=== PATIENT | female | born 1995 | race Caucasian/White ===

== ENCOUNTER 2025-02-05 13:08 | Outpatient (AMB) | payer BC, SELFPAY ==
--- OUTSIDE RECORDS SUMMARY | 2024-06-05 16:14 | XMS_ITS | Encounter Summary ---
Author Organization [facility] Address [address] [place] [address] [address] [place] [address] Phone Care Team Providers Care Eye Glass Frame Polisher Name Role Phone Liz Fuentes MD Primary Care Provider Unknown, Unknown MD Unavailable Unavailable Encounter Details Date Type Department Care Team (Late st Contact Info) Description 06/05/2024 3:14 PM EST Hospital Encounter [facility] [address] [place] [phone] Laura Barr CNP [address] [place] [phone] [email or web address] Social History Tobacco Use Types Packs/Day Years [...] Description 04/03/2026 3:00 PM EDT Office Visit [facility] [address] [place] [address] Nic Vega MD, MS [address] [place] [address] [email or web address] documented as of this encounter Procedures Procedure [...] clinician's provided indication for this examination in [facility]:Cough; H/o PE r/t OCP's- off eliquis X 1 year- Covid 2.5 weeks ago-restart eliqius X 2 weeks COMPARISON: XR CHEST PORTABLE FINDINGS: Devices/Tubes/Lines: None. Lungs: No focal consolidation or pulmonary edema. Pleura: No pleural effusions or pneumothorax. Heart/Mediastinum: Normal cardiomediastinal silhouette. Bones/Soft Tissues: No significant abnormality. IMPRESSION: No acute abnormality. Laura Barr SPECIAL ASSETS OFFICER IMG XR CHEST Final Resul t documented in this encounter Visit Diagnoses Not on filedocumented in this encounter Care Teams Eye Glass Frame Polisher Relationship Specialty Start Date End Date Liz Fuentes MD [facility] [place] [address] [email or web address] PCP - General 05/07/22 12/17/24 Unknown, Unknown, [facility] [place] [address] 05/07/22 documented as of this encounter Additional Source Comments The information contained in this document represents components of the legal health record. It is not the complete legal health record.[facility]
--- NOTE | 2025-02-05 13:11 | MHC.PC.OV ---
Vital Signs 02/05/25 13:13 Height 5 ft 5.98 in Weight 189 lb 4 oz BMI 30.6 BP 126/74 Blood Pressure Location Lt brachial Position Sitting Respiration 12 Pulse 79 Pulse Source Pulse Oximeter Temp 98.5 F Temp Source Oral Pulse Oximetry (%) 99 Oxygen Delivery Method Room Air Intake Visit Reasons: CONSULTING BUSINESS DEVELOPER-PE Allergies cat dander Allergy (Unknown, Verified 02/05/25 13:07) Unknown horse dander Allergy (Unknown, Verified 02/05/25 13:07) Unknown Sulfa (Sulfonamide Antibiotics) Allergy (Unknown, Verified 02/05/25 13:07) Rash Medication List - Last Reconciled 02/05/25 by Rahel Denny PA-C albuterol sulfate 90 mcg/actuation (Ventolin HFA) 2 puffs inhalation Q6H PRN Tobacco use date assessed: 02/05/25 Dental Screening Dental Screen Date: 02/05/25 Did you have a dental visit in the last 12 months?: No Did you have a dental problem in the last 6 months where you did not have access to dental care?: No Was dental information given to patient?: Patient declined HPI CONSULTING BUSINESS DEVELOPER-PE HPI Details Patient is a 29-year-old female who presents today to establish care and for a physical exam. She states that she recently moved back to the [facility] after living out by [place]. 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 Follows [facility] cardiology after her PEs (Apr 2022). Gets annual echos. He has recommended eliquis s/p surgeries or for covid infections. 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 Psych: has a hx of anxiety following the bilateral PEs. She states that she has a significant fear of travel now. She says that a couple times she has had panic attacks while being a passenger in the car. She states that following the pulmonary embolism she did not want to go on an airplane and had her 1st true panic attack on a plane for her honeymoon. She says that she had her PE in April then got in May and then went on a honeymoon in a couple weeks later and panicked. She states since then she has not been on an airplane. She has been following with a therapist for over a year. She started to see someone in 2023 when she realized that this was consuming her. No SI/HI. She has never been on medication before. No one in her family has a history of this Retail Cashier: Overdue. Not family planning. Family history: Mother had breast cancer at 42. [facility] Social History Housing: House Patient Tobacco Use Status: Never used Tobacco e-Cigarette/Vaping Use: Never Used Second Hand Smoke Exposure: No service: No Current occupational status: employed Current occupation: admitions coordinator Current occupational exposures/hazards: No Cognitive needs: No Hearing needs: No Vision needs: No Questionnaire PHQ-9 Over the last 2 weeks, how often have you been bothered by any of the following problems? 1. Little interest or pleasure in doing things: not at all 2. Feeling down, depressed, or hopeless: not at all 3. Trouble falling or staying asleep, or sleeping too much: several days 4. Feeling tired or having little energy: not at all 5. Poor appetite or overeating: not at all 6. Feeling bad about yourself - or that you are a failure or have let yourself or your family down: not at all 7. Trouble concentrating on things, such as reading the newspaper or watching television: not at all 8. Moving or speaking so slowly that other people could have noticed. Or the opposite - being so fidgety or restless that you have been moving around a lot more than usual: not at all 9. Thoughts that you would be better off or of hurting yourself in some way: not at all Total score: 1 Depression Screening Interpretation: Negative Depression Screening Done: Yes 69870 - PHQ-9 Billing: Yes Source: Developed by Drs. Epi Hodge, María Renteria, Scout Martinez and colleagues, with an educational marla from [employer]. Thrive Questionnaire Date Thrive assessed: 02/05/25 I am a: Patient What is your living situation today?: I have a steady place to live Within the past 12 months, did the food you bought not last and you didn't have the money to get more?: Never true Within the past 12 months, did you worry whether your food would run out before you got money to buy more?: Never true Do you have trouble paying for medicines?: No Do you have trouble getting transportation to medical appointments?: No Do you have trouble paying your heating and electricity bill?: No Do you have trouble taking care of your child, family member or friend?: No Do you have trouble with day-to-day activities such as bathing, preparing meals, shopping, managing finances, etc.?: No Are you currently unemployed and looking for a job?: No Are you interested in more education?: No Please select the resources that you would like help with: None Currently or been in a relationship where the following occur: No concerns reported THRIVE Score: 0 AUDIT C Alcohol Use Questionnaire (AUDIT-C) 1. How often do you have a drink containing alcohol?: 2-4 times a month 2. How many drinks containing alcohol do you have on a typical day when you are drinking?: 1 or 2 3. How often do you have six or more drinks on one occasion?: Never Total Score: 2 DAGO-7 AMB Questionnaire DAGO-7 Date DAGO - 7 assessed: 02/05/25 Feeling nervous, anxious, or on edge: 2 = More than half the days Not being able to stop or control worryin = Several days Worrying too much about different things: 1 = Several days Trouble relaxin = Several days Being so restless that it is hard to sit still: 1 = Several days Becoming easily annoyed or irritable: 0 = Not at all Feeling afraid as if something awful might happen: 1 = Several days Total DAGO-7 score (0-4 normal; 5-9 mild; 10-14 moderate; 15-21 severe): 7 Source: Developed by Drs. Epi Hodge, María Renteria, Scout Martinez and colleagues, with an educational marla from [employer]. DAGO-7 Assessment Billing DAGO-7 Assessment Tool: DAGO-7 Assessment 41500 Physical exam (Primary Care) BMI result Body Mass Index 30.6 Depression Screening Interpretation: Negative Currently or been in a relationship where the following occur: No concerns reported Const Orientation/consciousness: patient oriented x3 HENMT Ears: hearing grossly normal bilaterally and TM's normal bilaterally General nose exam: No nasal polyps present Face and sinus: Yes sinuses nontender Mouth: Normal oral and palatal mucosa present Eyes Pupils: Equal, round and reactive pupils present EOM: EOMs intact bilaterally Neck Neck: Yes full ROM and Yes no lymphadenopathy Thyroid: Thyroid normal Chest Chest palpation & inspection: normal inspection of the chest Resp Auscultation: clear to auscultation bilaterally Cardio Rate: regular rate Rhythm: regular rhythm Heart sounds: S1 normal heart sound present and S2 normal heart sound present Peripheral pulses: Peripheral pulses 2+ throughout GI Other: Soft, nontender Auscultation: normal bowel sounds Rectal Exam - Female: deferred General: Yes no CVA tenderness Back/Spine/Pelvis Other: Nontender Back: no CVA tenderness Skin General skin exam: no rashes or lesions noted Neuro General: patient oriented x3, gait normal, CN's II-XI intact bilaterally and deep tendon reflexes 2+ bilaterally Cranial nerves: Yes Equal, round and reactive pupils present Motor exam (neuro): 5/5 motor strength present throughout Sensory Exam: double simultaneous stimulation for sensation normal Coordination: [id number] test normal and Romberg test negative Extrem General: Yes normal to inspection and Yes full ROM Psych Affect: normal affect Attitude: cooperative Thought process: Normal thought process present Thought content: Normal thought content present Insight: Good insight present (Psych) Judgement: Good judgement present (Psych) Coding Level of Care Code New Pt Level 3 (53146) Est Pt Prev Care 18-39y(49449) Diagnoses Routine general medical examination at a health care facility Z00.00 Generalized anxiety disorder F41.1 History of pulmonary embolus (PE) Z86.711 Panic attacks F41.0 Family history of breast cancer in mother Z80.3 Acne L70.9 Additional Codes DAGO-7 Assessment Billing - DAGO-7 Assessment Tool: DAGO-7 Assessment 45591 ([id number]) PHQ-9 - 55410 - PHQ-9 Billing: Yes ([id number]) Assessment & Plan Assessment & Plan (1) Routine general medical examination at a health care facility: Code(s): Z00.00 - Encounter for general adult medical examination without abnormal findings Plan: Health maintenance reviewed Labs ordered Referral to gynecology (2) Generalized anxiety disorder: Code(s): F41.1 - Generalized anxiety disorder Category: Medical Plan: We will start Lexapro. Discussed risks and benefits and adverse effects of this medication. Prescription for lorazepam to use as needed for severe anxiety/panic attacks. We reviewed that this medication can be addictive and habit-forming. Advised to avoid drinking and/or driving while taking this medication as it can be sedating. (3) History of pulmonary embolus (PE): Code(s): Z86.711 - Personal history of pulmonary embolism Category: Medical Plan: Denies any lasting effects from the PE other than panic attacks. States it was felt to be a ?perfect storm?. She had traveled a long why on an airplane, had COVID and was on control pills. (4) Panic attacks: Code(s): F41.0 - Panic disorder [episodic paroxysmal anxiety] Category: Medical Plan: As above (5) Family history of breast cancer in mother: Code(s): Z80.3 - Family history of malignant neoplasm of breast Category: Medical Plan: Mammogram ordered (6) Acne: Code(s): L70.9 - Acne, unspecified Category: Medical Plan: Referral to [facility] Orders: Orders Complete Blood Count Auto Diff Today F41.0 - Panic disorder [episodic paroxysmal anxiety], F41.1 - Generalized anxiety disorder, Z00.00 - Encounter for general adult medical examination without abnormal findings, Z86.711 - Personal history of pulmonary embolism Comprehensive [place]. Panel Fast Today F41.0 - Panic disorder [episodic paroxysmal anxiety], F41.1 - Generalized anxiety disorder, Z00.00 - Encounter for general adult medical examination without abnormal findings, Z86.711 - Personal history of pulmonary embolism TSH reflex Free T4 Today F41.0 - Panic disorder [episodic paroxysmal anxiety], F41.1 - Generalized anxiety disorder, Z00.00 - Encounter for general adult medical examination without abnormal findings, Z86.711 - Personal history of pulmonary embolism Magnesium Today F41.0 - Panic disorder [episodic paroxysmal anxiety], F41.1 - Generalized anxiety disorder, Z00.00 - Encounter for general adult medical examination without abnormal findings, Z86.711 - Personal history of pulmonary embolism MM screening mammo BI Today Z12.31 - Encounter for screening mammogram for malignant neoplasm of breast, Z80.3 - Family history of malignant neoplasm of breast Lipid Panel Today F41.0 - Panic disorder [episodic paroxysmal anxiety], F41.1 - Generalized anxiety disorder, Z00.00 - Encounter for general adult medical examination without abnormal findings, Z86.711 - Personal history of pulmonary embolism Vitamin B12 and Folate Today F41.0 - Panic disorder [episodic paroxysmal anxiety], F41.1 - Generalized anxiety disorder, Z00.00 - Encounter for general adult medical examination without abnormal findings, Z86.711 - Personal history of pulmonary embolism Microalbumin, Random (w Creat) Today F41.0 - Panic disorder [episodic paroxysmal anxiety], F41.1 - Generalized anxiety disorder, Z00.00 - Encounter for general adult medical examination without abnormal findings, Z86.711 - Personal history of pulmonary embolism Referrals CREDIT RATING CHECKER Referral Z01.419 - Encounter for gynecological examination (general) (routine) without abnormal findings Dermatology Referral L70.9 - Acne, unspecified Medications: New escitalopram oxalate (Lexapro) 10 mg PO DAILY 90 tabs 0RF lorazepam (Ativan) 0.5 mg PO DAILY PRN 20 tabs 0RF anxiety 30 days
[2025-02-05 13:13] VITALS: BP 126/74; PULSE 79; RESP 12; TEMP 36.9; O2SAT 99; BMI 30.6
== END 2025-02-05 13:43 | disposition home or self-care (01) ==
LOC: HO.HMCFM 13:09
PROVIDERS: PCP Physician Assistant; Visit Provider Physician Assistant
DX: Z00.00 Encounter for general adult medical examination without abnormal findings (principal); F41.1 Generalized anxiety disorder; L70.9 Acne, unspecified; F41.0 Panic disorder [episodic paroxysmal anxiety]; Z86.711 Personal history of pulmonary embolism; Z80.3 Family history of malignant neoplasm of breast

== ENCOUNTER → 2025-02-05 13:08 | Outpatient (BNVA) | payer BC, SELFPAY | PROVIDERS: PCP Physician Assistant; Visit Provider Physician Assistant | DX: Z00.00 Encounter for general adult medical examination without abnormal findings (principal); J45.990 Exercise induced bronchospasm; F41.1 Generalized anxiety disorder; F41.0 Panic disorder [episodic paroxysmal anxiety]; L70.9 Acne, unspecified; Z80.3 Family history of malignant neoplasm of breast; Z86.711 Personal history of pulmonary embolism | CPT/HCPCS: 96127 ==

== ENCOUNTER 2025-03-03 14:09 | Outpatient (REF) | payer BC, SELFPAY ==
--- OUTSIDE RECORDS SUMMARY | 2024-06-05 16:14 | XMS_ITS | Encounter Summary ---
Author Organization [facility] Address [address] [place] [address] [address] [place] [address] Phone Care Team Providers Care Banking Teacher Name Role Phone Liz Fuentes MD Primary Care Provider [phone] Unknown, Unknown MD Unavailable Unavailable Encounter Details Date Type Department Care Team (Late st Contact Info) Description 06/05/2024 3:14 PM EST Hospital Encounter [facility] [address] [place] [phone] Laura Barr CNP [address] [place] [address] [email or web address] Social History Tobacco Use Types Packs/Day Years [...] Description 04/03/2026 3:00 PM EDT Office Visit [facility] [address] [place] [address] Nic Vega MD, MS [address] [place] [address] [email or web address] documented as of this encounter Procedures Procedure [...] clinician's provided indication for this examination in [facility]:Cough; H/o PE r/t OCP's- off eliquis X 1 year- Covid 2.5 weeks ago-restart eliqius X 2 weeks COMPARISON: XR CHEST PORTABLE FINDINGS: Devices/Tubes/Lines: None. Lungs: No focal consolidation or pulmonary edema. Pleura: No pleural effusions or pneumothorax. Heart/Mediastinum: Normal cardiomediastinal silhouette. Bones/Soft Tissues: No significant abnormality. IMPRESSION: No acute abnormality. Laura Barr NOC ENGINEER IMG XR CHEST Final Resul t documented in this encounter Visit Diagnoses Not on filedocumented in this encounter Care Teams Banking Teacher Relationship Specialty Start Date End Date Liz Fuentes MD [facility] [place] [address] [email or web address] PCP - General 05/07/22 12/17/24 Unknown, Unknown, [facility] [place] [address] 05/07/22 documented as of this encounter Additional Source Comments The information contained in this document represents components of the legal health record. It is not the complete legal health record.[facility]
[2025-03-03 17:42] LABS: MANUAL DIFF FLAG NO
[2025-03-03 17:51] LABS: Hematocrit 42.7 % (37.0-47.0); Hemoglobin 14.0 g/dl (12.0-16.0); Imm Gran Abs Auto 0.02 X10*3/uL (0.00-0.03); Imm Gran Pct Auto 0.2 % (0.0-0.4); Lymphocytes Absolute Auto 2.1 X10*3/uL (1.2-4.9); Mean Corpuscular HGB Conc 32.8 g/dl (31.0-35.0); Mean Corpuscular Hemoglobin 28.3 pg (27.0-33.0); Mean Corpuscular Volume 86.4 fL (80.0-98.0); NRBC Abs Auto 0.000 X10*3/uL (0.0-0.012); NRBC Pct Auto 0.0 /100WBC (0.0-0.2); Platelet Count 277 X10*3/uL (160-400); Red Blood Count 4.94 X10*6/uL (4.20-5.50); White Blood Count 8.6 X10*3/uL (4.8-10.8)
[2025-03-03 18:19] LABS: Alanine Aminotransferase 21 U/L (0-31); Albumin Level 4.6 g/dL (3.5-5.0); Alkaline Phosphatase 66 U/L (39-117); Anion Gap 12 (12-20); Aspartate Amino Transferase 25 U/L (5-31); Blood Urea Nitrogen 13 mg/dL (9-16); Calcium 9.4 mg/dL (8.4-10.2); Carbon Dioxide 25 mmol/L (22-29); Chloride 105 mmol/L (96-108); Cholesterol 202 mg/dL (<200); Estimated Glomerular Filt Rate > 60; HDL Cholesterol 58 mg/dL (>40); Magnesium 1.9 mg/dL (1.6-2.6); Potassium 3.9 mmol/L (3.3-5.1); Sodium 138 mmol/L (135-145); Total Protein 7.4 g/dL (6.5-8.0); Triglycerides 93 mg/dL (<150)
[2025-03-03 18:27] LABS: Microalbum/Creatinine Ratio Ur 9.5 ug/mg cr (<30)
[2025-03-03 18:39] LABS: Folate 9.6 ng/mL (> or = 4.0); Vitamin B12 583 pg/mL (200-900)
--- OUTSIDE RECORDS SUMMARY | 2025-03-03 19:29 | XMS_ITS | Encounter Summary ---
Author Organization [facility] Address [address] [place] [address] [address] [place] [address] Phone Care Team Providers Care Traffic Monitor Specialist Name Role Phone Liz Fuentes MD Primary Care Provider [phone] Unknown, Unknown Unavailable Unavailable Rahel Denny Primary Care Provider [phone] Encounter Details Date Type Department Care Team (Late st Contact Info) Description 05/08/[address] [facility] Echocardiography [address] [place] [address] Social History Tobacco Use Types Packs/Day Years Used Date Smoking Tobacco: Never Assessed Comments Unknown Sex and Gender Information Value Date Recorded Sex Assigned at Female 05/16/2022 4:26 PM EST Legal Sex Female 5:18 PM EDT Gender Identity Female 05/16/2022 4:32 PM EST Sexual Orientation Straight 05/16/2022 4: 26 PM EST documented as of this encounter Functional Status * Calculated C-SSRS Risk Score (Lifetime/Recent) Answer Date of Assessment Author No Risk Indicated 05/08/2022 5:00 AM Ayan Stevenson RN * [place] Suicide Severity Rating Scale (Screener/Recent Self-Report) Question Answer Date of Assessment Author 1. Wish to be (Past 1 Month) No 022 5:00 AM Ayan Stevenson, RAMOS 2. Non-Specific Active Suici maurilio Thoughts (Past 1 Month) No 05/08/2022 5:00 AM EST Leeann, Antho ny, RN 6. Suicidal Behavior (Lifetime) No 2 5:00 AM Ayan Stevenson RN documented as of this encounter Plan of Treatment Upcoming Encounters Date Type Department Care Team (Late st Contact Info) Description 04/03/2026 3:00 PM EDT Office Visit [facility] Cardiovascular Clinic [address] [place] [address] Nic Vega MD, MS [address] [place] [address] [email or web address] documented as of this encounter Visit Diagnoses Not on filedocumented in this encounter Care Teams Traffic Monitor Specialist Relationship Specialty Start Date End Date Liz Fuentes MD [facility] [place] [address] PCP - General 05/07/22 12/17/24 Rahel Denny PA [address] [place] [address] PCP - General Physician Radiation Monitor 12/18/24 Unknown, Unknown, [address] [place] [address] 05/07/22 documented as of this encounter Additional Source Comments The information contained in this document represents components of the legal health record. It is not the complete legal health record.[facility]
--- OUTSIDE RECORDS SUMMARY | 2025-03-03 19:29 | XMS_ITS | Clinical Summary ---
Author Organization [facility] Address [address] [facility] [address] [place] [address] Phone Care Team Providers Care Water Reuse Program Manager Name Role Phone Unknown, Unknown MD Unavailable Unavailable Rahel Denny Primary Care Provider [phone] Allergies Active Allergy Reactions Criticality Noted Date Comments Cat Dander Unknown Medium 08/11/2015 Horse Dander Unknown Medium 08/11/2015 Sulfa (Sulfonamide Antibiotics) Rash Low 03/04/2018 Sulfa (Sulfonamide Antibiotics) Bronchospasm 05/08/2022 Childhood reaction Medications albuterol 90 mcg/actuation inhaler Inhale 2 puffs into the lungs every 6 (six) hours as needed for wheezing. Active apixaban (ELIQUIS) 2.5 mg Take 2.5 mg by mouth 2 (two) times a day. Active Active Problems Problem Noted Date Diagnosed Date Mild intermittent asthma, uncomplicated 05/17/20 22 Other pulmonary embolism without acute cor pulmo nale 05/17/2022 Pulmonary embolism, bilateral 05/08/2022 Extrinsic asthma 09/22/2014 Immunizations Immunization Administration Dates Next Due Influenza Quadrivalent Preservative Free IM 02/17 Family History Medical History Relation Comments Venous thrombosis Neg Hx Social History Tobacco Use Types Packs/Day Years Used Date Smoking Tobacco: Never Smokeless Tobacco: Never Tobacco Cessation:Counseling Given: Not Answered Alcohol Use Standard Drinks/Week Comments Never 0 [...] Orientation Straight 05/16/2022 4: 26 PM EST Last Filed Vital Signs Vital Sign Reading Time Taken Comments Blood Pressure 118/80 06/05/2024 2:59 PM EST Pulse 88 06/05/2024 2:59 PM EST Temperature 36.8 C (98.3 F) 06/05/2024 2:59 PM EST Respiratory Rate 17 06/05/2024 2:59 PM EST Oxygen Saturation 98% 06/05/2024 2:59 PM EST Inhaled Oxygen Concentration - - Weight 73.5 kg (162 lb) 11/21/2022 3:37 PM EDT Height 170.2 cm (5' 7 ) 05/08/2022 5:00 AM EST Body Mass Index 25.37 05/08/2022 5:00 AM EST Plan of Treatment Upcoming Encounters Date Type Department Care Team (Late st Contact Info) Description 04/03/2026 3:00 PM EDT Office Visit [facility] Cardiovascular Clinic [address] [place] [address] Nic Vega MD, MS [address] [place] [address] [email or web address] Health Maintenance Due Date Last Done Comments DEPRESSION SCREENING 2005 HEPATITIS C SCREENING 2011 HIV ONE-TIME SCREENING (18-65 YEARS) 2011 PNEUMOCOCCAL VACCINES (0-49 years) (1 of 2 - PCV) 2012 PAP SMEAR 2014 Adult Td,Tdap Booster 03/22/2016 03/22/2006 COVID-19 VACCINE (2023- season) 2024 CREATININE LEVEL 09/14/2024 09/15/2023, , 05/11/2022, Additional history exists INFLUENZA VACCINE (#1) 2025 2, 04/07/2020, 03/03/2015 SMOKING STATUS SCREENING (Once After 26 Yrs) Completed 06/05/2024 HEPATITIS A VACCINES Aged Out No long er eligible based on patient's age to complete this topic HIB VACCINES Aged Out No longer eligi ble based on patient's age to complete this topic MENINGOCOCCAL VACCINES (ACWY) Aged Out No longer eligible based on patient's age to complete this topic MENINGOCOCCAL VACCINES (B) Aged Out N o longer eligible based on patient's age to complete this topic Medical Devices Not on file Procedures Procedure Name Priority Date/Time Associated Diagnosis Comments CREATININE/EGFR Routine 09/15/2023 8:06 AM EDT Multiple subsegmental pulmonary emboli without acute cor pulmonale from Last 3 Months or Most Recently Relevant to Health Maintenance Results * Creatinine/eGFR (09/15/2023 8:06 AM EDT) CREATININE 0.78 0.50 - 1.20 mg/dL [facility] EGFR 105 >59 mL/min/1.7 3m2 [facility] Comment:Estimated glomerular filtration rate calculated using the CKD-EPI refit equation. 09/15/2023 8:06 AM EDT 09/15/2023 8:37 AM EDT us Nic Vega MD, MS LAB BLOOD ORDERABLES Final Result [facility] [address] [place] [phone] from Last 3 Months or Most Recently Relevant to Health Maintenance Insurance [facility] [place] [address] Advance Directives For more information, please contact: [phone] (9AM - 5PM [facility], Monday-Monday) Documents on File Type Date Recorded Patient Locksmith Apprentice Expl anation Healthcare Proxy 05/17/2022 5:05 PM * Full Code (Latest Code Status on File) Date Activated Date Inactivated Comments 05/08/2022 6:20 AM Question Answer Comments Code Status Confirmed With: Patient Code Status Communicated To: Other (specify belo w) Code Discussion Comments: [facility] Care Teams Water Reuse Program Manager Relationship Specialty Start Date End Date Rahel Denny PA [address] [place] [address] PCP - General Physician Mechanical Design Drafter 12/18/24 Unknown, Unknown, 05/07/22 Additional Source Comments The information contained in this document represents components of the legal health record. It is not the complete legal health record.[facility]
--- OUTSIDE RECORDS SUMMARY | 2025-03-03 19:29 | XMS_ITS | Encounter Summary ---
Author Organization [facility] Address [address] [place] [address] Phone Care Team Providers Care Tanker Driver Name Role Phone Liz Fuentes MD Primary Care Provider [phone] Unknown, Unknown Unavailable Unavailable Rahel Denny Primary Care Provider [phone] Encounter Details Date Type Department Care Team (Late st Contact Info) Description 05/09/2022 Procedure Pass [facility] Cardiac Vortex Operator [address] [place] [address] Social History Tobacco Use Types Packs/Day Years [...] Description 04/03/2026 3:00 PM EDT Office Visit [facility] Cardiovascular Clinic [address] [place] [address] Nic Vega MD, MS [address] [place] [address] [email or web address] documented as of this encounter Visit Diagnoses Not on filedocumented in this encounter Care Teams Tanker Driver Relationship Specialty Start Date End Date Liz Fuentes MD [address] [place] [address] [email or web address] PCP - General 05/07/22 12/17/24 Rahel Denny PA [address] [place] [address] PCP - General Physician Laser Beam Cutter 12/18/24 Unknown, Unknown, [address] [place] [address] 05/07/22 documented as of this encounter Additional Source Comments The information contained in this document represents components of the legal health record. It is not the complete legal health record.[facility]
--- OUTSIDE RECORDS SUMMARY | 2025-03-03 19:29 | XMS_ITS | Encounter Summary ---
Author Organization [facility] Address [address] [place] [address] [address] [place] [address] Phone Care Team Providers Care Roadability Machine Operator Name Role Phone Liz Fuentes MD Primary Care Provider [phone] Unknown, Unknown Unavailable Unavailable Rahel Denny Primary Care Provider [phone] Encounter Details Date Type Department Care Team (Late st Contact Info) Description 10/14/2022 Procedure Pass [facility] EKG [address] [place] [address] Social History Tobacco Use Types Packs/Day Years Used Date Smoking Tobacco: Never Smokeless Tobacco: Never Alcohol Use Standard Drinks/Week Comments Never 0 (1 standard drink = 0.6 oz pur e alcohol) Education Answer Date Recorded Are you interested in more education? Not on tyshawn e 10/14/2022 Are you concerned about learning? Not on file 10/14/2022 No 10/14/2022 No 10/14/2022 Comments Unknown Sex and Gender Information Value [...] Office Visit [facility] Cardiovascular Clinic [address] [place] [address] Nic Vega MD, MS [address] [place] [address] [email or web address] documented as of this encounter Visit Diagnoses Not on filedocumented in this encounter Care Teams Roadability Machine Operator Relationship Specialty Start Date End Date Liz Fuentes MD [facility] [place] [address] PCP - General 05/07/22 12/17/24 Rahel Denny PA [address] [place] [address] PCP - General Physician Railway Signalling Engineer 12/18/24 Unknown, Unknown, [address] [place] [address] 05/07/22 documented as of this encounter Additional Source Comments The information contained in this document represents components of the legal health record. It is not the complete legal health record.[facility]
--- OUTSIDE RECORDS SUMMARY | 2025-03-03 19:29 | XMS_ITS | Encounter Summary ---
Author Organization [facility] Address [address] [place] [address] [address] [place] [address] Phone Care Team Providers Care Drug Enforcement Administration Agent Name Role Phone Liz Fuentes MD Primary Care Provider [phone] Unknown, Unknown Unavailable Unavailable Rahel Denny Primary Care Provider [phone] Encounter Details Date Type Department Care Team (Late st Contact Info) Description 09/14/2023 Procedure Pass [facility] [address] [place] [address] Social History Tobacco Use Types Packs/Day Years [...] Description 04/03/2026 3:00 PM EDT Office Visit [facility] Cardiovascular Clinic [address] [place] [address] Nic Vega MD, MS [address] [place] [address] [email or web address] documented as of this encounter Visit Diagnoses Not on filedocumented in this encounter Care Teams Drug Enforcement Administration Agent Relationship Specialty Start Date End Date Liz Feuntes MD [address] [place] [address] PCP - General 05/07/22 12/17/24 Rahel Denny PA [address] [place] [address] PCP - General Physician Palliative Care Nurse Practitioner 12/18/24 Unknown, Unknown, [address] [place] [address] 05/07/22 documented as of this encounter Additional Source Comments The information contained in this document represents components of the legal health record. It is not the complete legal health record.[facility]
--- OUTSIDE RECORDS SUMMARY | 2025-03-03 19:29 | XMS_ITS | Encounter Summary ---
Author Organization [facility] Address [address] [place] [address] Phone Care Team Providers Care Coiled Tubing Supervisor Name Role Phone Liz Fuentes MD Primary Care Provider [phone] Unknown, Unknown Unavailable Unavailable Rahel Denny Primary Care Provider [phone] Encounter Details Date Type Department Care Team (Late st Contact Info) Description 05/30/2022 Procedure Pass [address] [address] Social History Tobacco Use Types Packs/Day Years Used Date Smoking Tobacco: Never Smokeless Tobacco: Never Alcohol Use Standard Drinks/Week Comments Never 0 (1 standard drink = 0.6 oz pur e alcohol) Comments Unknown Sex and Gender Information Value Date Recorded Sex Assigned at Female 05/16/2022 4:26 PM EST Legal Sex Female 5:18 PM EDT Gender Identity Female 05/16/2022 4:32 PM EST Sexual Orientation Straight 05/16/2022 4: 26 PM EST documented as of this encounter Plan of Treatment Upcoming Encounters Date Type Department Care Team (Late Contact Info) Description 04/03/2026 3:00 PM EDT Office Visit [facility] Cardiovascular Clinic [address] [place] [address] Nic Vega MD, MS [address] [place] [address] [email or web address] documented as of this encounter Visit Diagnoses Not on filedocumented in this encounter Care Teams Coiled Tubing Supervisor Relationship Specialty Start Date End Date Liz Fuentes MD [address] [place] [address] PCP - General 05/07/22 12/17/24 Rahel Denny PA [address] [place] [address] PCP - General Physician Community Outreach Advocate 12/18/24 Unknown, Unknown, [facility] [place] [address] 05/07/22 documented as of this encounter Additional Source Comments The information contained in this document represents components of the legal health record. It is not the complete legal health record.[facility]
--- OUTSIDE RECORDS SUMMARY | 2025-03-03 19:29 | XMS_ITS | Encounter Summary ---
Author Organization [facility] Address [address] [place], [place] [address] [place] [address] Phone Care Team Providers Care Teletype Mechanic Name Role Phone Liz Fuentes MD Primary Care Provider [phone] Unknown, Unknown Unavailable Unavailable Rahel Denny Primary Care Provider [phone] Encounter Details Date Type Department Care Team (Late st Contact Info) Description 05/17/2022 Procedure Pass [facility] Echocardiography [address] [place] [address] Social History Tobacco Use Types Packs/Day Years [...] Description 04/03/2026 3:00 PM EDT Office Visit [facility] Cardiovascular Clinic [address] [place] [address] Nic Vega MD, MS [address] [place] [address] [email or web address] documented as of this encounter Visit Diagnoses Not on filedocumented in this encounter Care Teams Teletype Mechanic Relationship Specialty Start Date End Date Liz Fuentes MD [address] [place] [address] [place] [address] [email or web address] PCP - General 05/07/22 12/17/24 Rahel Denyn PA [address] [place] [address] PCP - General Physician Operations Support Manager 12/18/24 Unknown, Unknown, [address] [place] [address] 05/07/22 documented as of this encounter Additional Source Comments The information contained in this document represents components of the legal health record. It is not the complete legal health record.[facility]
--- OUTSIDE RECORDS SUMMARY | 2025-03-03 19:29 | XMS_ITS | Encounter Summary ---
Author Organization [facility] Address [address] [place], [place] [address] [place] [address] Phone Care Team Providers Care Mapping Pilot Name Role Phone Liz Fuentes MD Primary Care Provider Unknown, Unknown Unavailable Unavailable Rahel Denny Primary Care Provider [phone] Encounter Details Date Type Department Care Team (Late st Contact Info) Description 05/11/2022 Procedure Pass [facility] [address] [place] [address] Social History Tobacco Use Types Packs/Day Years [...] Description 04/03/2026 3:00 PM EDT Office Visit [facility] Cardiovascular Clinic [address] [place] [address] Nic Vega MD, MS [address] [place] [address] [email or web address] documented as of this encounter Visit Diagnoses Not on filedocumented in this encounter Care Teams Mapping Pilot Relationship Specialty Start Date End Date Liz Fuentes MD [address] [place] [address] [email or web address] PCP - General 05/07/22 12/17/24 Raehl Denny PA [address] [place] [address] PCP - General Physician Furnace Helper 12/18/24 Unknown, Unknown, [address] [place] [address] 05/07/22 documented as of this encounter Additional Source Comments The information contained in this document represents components of the legal health record. It is not the complete legal health record.[facility]
== END 2025-03-03 14:10 | disposition home or self-care (01) ==
LOC: HO.WFDLDS 14:09
PROVIDERS: Visit Provider Physician Assistant
DX: Z00.00 Encounter for general adult medical examination without abnormal findings (principal); Z13.6 Encounter for screening for cardiovascular disorders; F41.1 Generalized anxiety disorder; F41.0 Panic disorder [episodic paroxysmal anxiety]; Z86.711 Personal history of pulmonary embolism
CPT/HCPCS: 36415; 80053; 80061; 82043; 82570; 82607; 82746; 83735; 84443; 85025

== ENCOUNTER 2025-03-19 12:57 | Outpatient (AMB) | payer BC, SELFPAY ==
--- OUTSIDE RECORDS SUMMARY | 2024-06-05 16:14 | XMS_ITS | Encounter Summary ---
Author Organization [facility] Address [address] [place] [address] [address] [place] [address] Phone Care Team Providers Care Preventive Maintenance Coordinator Name Role Phone Liz Fuentes MD Primary Care Provider [phone] Unknown, Unknown MD Unavailable Unavailable Encounter Details Date Type Department Care Team (Late st Contact Info) Description 06/05/2024 3:14 PM EST Hospital Encounter [facility] [address] [place] [phone] Laura Barr CNP [address] [place] [phone] [email or web address] Social History Tobacco Use Types Packs/Day Years [...] Description 04/03/2026 3:00 PM EDT Office Visit [facility] [address] [place] [address] Nic Vega MD, MS [address] [facility] [address] [place] [address] [email or web address] documented as of this encounter Procedures Procedure [...] abnormality. IMPRESSION: No acute abnormality. Laura Barr CORPORATE TAX PREPARER IMG XR CHEST Final Resul t documented in this encounter Visit Diagnoses Not on filedocumented in this encounter Care Teams Preventive Maintenance Coordinator Relationship Specialty Start Date End Date Liz Fuentes MD [facility] [place] [address] [email or web address] PCP - General 05/07/22 12/17/24 Unknown, Unknown, [facility] [place] [address] 05/07/22 documented as of this encounter Additional Source Comments The information contained in this document represents components of the legal health record. It is not the complete legal health record.[facility]
--- NOTE | 2025-03-19 13:02 | A.OFFPC_ITS ---
Vital Signs 03/19/25 13:03 Height 5 ft 5.98 in Weight 194 lb 6 oz BMI 31.4 BP 110/66 Blood Pressure Location Rt brachial Position Sitting Respiration 14 Pulse 87 Pulse Source Pulse Oximeter Pulse Oximetry (%) 98 Oxygen Delivery Method Room Air Intake Visit Reasons: Anxiety Intake Note: Anxiety follow up Bore Miner Operator Required: No Allergies cat dander Allergy (Unknown, Verified 03/19/25 13:03) Unknown horse dander Allergy (Unknown, Verified 03/19/25 13:03) Unknown Sulfa (Sulfonamide Antibiotics) Allergy (Unknown, Verified 03/19/25 13:03) Rash Tobacco use date assessed: 03/19/25 Dental Screening Dental Screen Date: 02/05/25 HPI Anxiety HPI Details Patient is a 29-year-old female who presents today for a follow up. She was seen recently to establish care, for a physical and anxiety. 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 Gets annual echos. He has recommended eliquis s/p surgeries or for covid infections. 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 Psych: Has lorazepam to use as needed for travel. She denies any adverse effects we will take the Lexapro but has not notice a significant change in her symptoms. She says overall though she is feeling better but thinks that this is more lifestyle related as her father recently came off of life support and is doing well. She says that when she 1st saw me her father was on life support for a coronary artery spasm. Yard Loader Operator: Was referred and scheduled. Not family planning. Family history: Mother had breast cancer at 42. Mammogram was ordered COUNTS INCLUDE 234 BEDS AT [facility] Social History Housing: House Patient Tobacco Use Status: Never used Tobacco e-Cigarette/Vaping Use: Never Used Second Hand Smoke Exposure: No service: No Current occupational status: employed Current occupation: admitions coordinator Current occupational exposures/hazards: No Cognitive needs: No Hearing needs: No Vision needs: No Questionnaire Thrive Questionnaire Date Thrive assessed: 02/05/25 I am a: Patient What is your living situation today?: I have a steady place to live Within the past 12 months, did the food you bought not last and you didn't have the money to get more?: Never true Within the past 12 months, did you worry whether your food would run out before you got money to buy more?: Never true Do you have trouble paying for medicines?: No Do you have trouble getting transportation to medical appointments?: No Do you have trouble paying your heating and electricity bill?: No Do you have trouble taking care of your child, family member or friend?: No Do you have trouble with day-to-day activities such as bathing, preparing meals, shopping, managing finances, etc.?: No Are you currently unemployed and looking for a job?: No Are you interested in more education?: No Please select the resources that you would like help with: None Currently or been in a relationship where the following occur: No concerns reported THRIVE Score: 0 DAGO-7 AMB Questionnaire DAGO-7 Date DAGO - 7 assessed: 02/05/25 Source: Developed by Drs. Epi Hodge, María Renteria, Scout Martinez and colleagues, with an educational marla from [employer]. Physical exam (Primary Care) Vital Signs: Last Vital Signs Pulse 87 03/19/25 13:03 Resp 14 03/19/25 13:03 BP 110/66 03/19/25 13:03 Pulse Ox 98 03/19/25 13:03 Oxygen Delivery Method Room Air 03/19/25 13:03 BMI result Body Mass Index 31.4 Tobacco/Smoking Status: Tobacco use Status Tobacco use date assessed 03/19/25 03/19/25 13:05 Patient Tobacco Use Status Never used Tobacco 03/19/25 13:05 e-Cigarette/Vaping Use Never Used 03/19/25 13:05 Thrive Assessment: Date of Thrive Assessment Date Thrive assessed 02/05/25 03/19/25 13:05 Currently or been in a relationship where the following occur: No concerns reported Const Orientation/consciousness: patient oriented x3 HENMT Ears: hearing grossly normal bilaterally Neck Thyroid: Thyroid normal Lymphatic: no lymphadenopathy noted Resp Auscultation: clear to auscultation bilaterally Cardio Rate: regular rate Rhythm: regular rhythm Heart sounds: S1 normal heart sound present and S2 normal heart sound present GI Inspection: Yes normal to inspection Palpation (GI): Soft to palpation and Other GI palpation findings present (nontender, no cva tenderness) Auscultation: normoactive bowel sounds Rectal Exam - Female: deferred Skin General skin exam: no rashes or lesions noted Neuro General: patient oriented x3, gait normal and no focal motor deficits Coding Level of Care Code Est Pt Level 4 (90738) Complex EM visit Add On G2211 Diagnoses Generalized anxiety disorder F41.1 Panic attacks F41.0 Obesity (BMI 30.0-34.9) E66.811 Assessment & Plan Assessment & Plan (1) Generalized anxiety disorder: Code(s): F41.1 - Generalized anxiety disorder Category: Medical Plan: She will stop Lexapro for now and let me know how she does. (2) Panic attacks: Code(s): F41.0 - Panic disorder [episodic paroxysmal anxiety] Category: Medical Plan: Lorazepam to use as needed (3) Obesity (BMI 30.0-34.9): Code(s): E66.811 - Obesity, class 1 Category: Medical Plan: Discussed diet and lifestyle modifications. We also did briefly discuss GLP ones. She will let me know if her insurance covers this and if she is interested.
[2025-03-19 13:03] VITALS: BP 110/66; PULSE 87; RESP 14; O2SAT 98; BMI 31.4
--- OUTSIDE RECORDS SUMMARY | 2025-03-19 14:13 | XMS_ITS | Encounter Summary ---
Author Organization [facility] Address [address] [place] [address] [place] [address] Phone Care Team Providers Care Front Desk Admin Name Role Phone Liz Fuentes MD Primary Care Provider [phone] Unknown, Unknown Unavailable Unavailable Rahel Denny Primary Care Provider [phone] Encounter Details Date Type Department Care Team (Late st Contact Info) Description 05/11/2022 Procedure Pass [facility] [address] [place] [address] Social History Tobacco Use Types Packs/Day Years [...] Description 04/03/2026 3:00 PM EDT Office Visit [facility] Cardiovascular Clinic [address] [place] [address] Nic Vega MD, MS 75 [facility] [address] [place] [address] [email or web address] documented as of this encounter Visit Diagnoses Not on filedocumented in this encounter Care Teams Front Desk Admin Relationship Specialty Start Date End Date Liz Fuentes MD [address] [place] [address] [email or web address] PCP - General 05/07/22 12/17/24 Rahel Denny PA [address] [place] [address] PCP - General Physician Etl Developer 12/18/24 Unknown, Unknown, [address] [place] [address] 05/07/22 documented as of this encounter Additional Source Comments The information contained in this document represents components of the legal health record. It is not the complete legal health record.[facility]
--- OUTSIDE RECORDS SUMMARY | 2025-03-19 14:13 | XMS_ITS | Encounter Summary ---
Author Organization [facility] Address [address] [place] [address] Phone Care Team Providers Care Machine Shop Specialist Name Role Phone Liz Fuentes MD Primary Care Provider [phone] Unknown, Unknown Unavailable Unavailable Rahel Denny Primary Care Provider [phone] Encounter Details Date Type Department Care Team (Late st Contact Info) Description 05/30/2022 Procedure Pass [address] [address] Social History Tobacco Use Types Packs/Day Years [...] Description 04/03/2026 3:00 PM EDT Office Visit [facility] Cardiovascular Clinic 70 [place] [address] Nic Vega MD, MS 75 [facility] [address] [place] [address] [email or web address] documented as of this encounter Visit Diagnoses Not on filedocumented in this encounter Care Teams Machine Shop Specialist Relationship Specialty Start Date End Date [place] [address] [email or web address] PCP - General 05/07/22 12/17/24 Rahel Denny PA [address] [place] [address] PCP - General Physician Storage Garage Attendant 12/18/24 Unknown, Unknown, [address] [place] [address] 05/07/22 documented as of this encounter Additional Source Comments The information contained in this document represents components of the legal health record. It is not the complete legal health record.[facility]
--- OUTSIDE RECORDS SUMMARY | 2025-03-19 14:13 | XMS_ITS | Clinical Summary ---
Author Organization [facility] Address 399 [facility] 985 [place] [address] Phone Care Team Providers Care Interpretive Program Coordinator Name Role Phone Unknown, Unknown MD Unavailable Unavailable Rahel Denny Primary Care Provider [phone]- [phone] Allergies Active Allergy Reactions Criticality Noted Date [...] Upcoming Encounters Date Type Department Care Team ([facility] st Contact Info) Description 04/03/2026 3:00 PM EDT Office Visit [facility] Cardiovascular Clinic 70 [place] [address] Nic Vega MD, MS 75 [facility] [address] [place] [address] [email or web address] Health Maintenance Due Date Last Done Comments DEPRESSION SCREENING 2005 HEPATITIS C SCREENING 2011 HIV ONE-TIME SCREENING (18-65 YEARS) 2011 PNEUMOCOCCAL VACCINES (0-49 years) (1 of 2 - PCV) 2012 PAP SMEAR 2014 Adult Td,Tdap Booster 03/22/2016 03/22/2006 CREATININE LEVEL 09/14/2024 09/15/2023, , 05/11/2022, Additional history exists INFLUENZA VACCINE (#1) 2025 , 04/07/2020, 03/03/2015 COVID-19 VACCINE (2023- season) 2025 SMOKING STATUS SCREENING (Once After 26 Yrs) [...] EDT) CREATININE 0.78 0.50 - 1.20 mg/dL [facility] EGFR 105 >59 mL/min/1.7 3m2 [facility] Comment:Estimated glomerular filtration rate calculated using the CKD-EPI refit equation. 09/15/2023 8:06 AM EDT 09/15/2023 8:37 AM EDT us Nic Vega MD, MS LAB BLOOD ORDERABLES Final Result [facility] [address] [place] [address] from Last 3 Months or Most Recently Relevant to Health Maintenance Insurance [facility] [place] [address] [place] [address] [place] [address] [place] [address] [place] [address] [place] [address] [place] [address] Advance Directives For more information, please contact: [phone] (9AM - 5PM [place], Monday-Monday) Documents on File Type Date Recorded Patient Oracle Obiee Developer Expl anation Healthcare Proxy 05/17/2022 5:05 PM * Full Code (Latest Code Status on File) Date Activated Date Inactivated Comments 05/08/2022 6:20 AM Question Answer Comments Code Status Confirmed With: Patient Code Status Communicated To: Other (specify belo w) Code Discussion Comments: [facility] Care Teams Interpretive Program Coordinator Relationship Specialty Start Date End Date Rahel Denny PA [address] [place] [address] PCP - General Physician Medical Laboratory Technicians 12/18/24 Unknown, Unknown, 05/07/22 Additional Source Comments The information contained in this document represents components of the legal health record. It is not the complete legal health record.[facility]
--- OUTSIDE RECORDS SUMMARY | 2025-03-19 14:13 | XMS_ITS | Encounter Summary ---
Author Organization [facility] Address [address] [place], [place] [address] [place] [address] Phone Care Team Providers Care Poultry Eviscerator Name Role Phone Liz Fuentes MD Primary Care Provider [phone] Unknown, Unknown Unavailable Unavailable Rahel Denny Primary Care Provider [phone]- [phone] Encounter Details Date Type Department Care Team (Late st Contact Info) Description 05/17/2022 Procedure Pass [facility] Echocardiography 70 [place] [address] Social History Tobacco Use Types Packs/Day Years [...] Description 04/03/2026 3:00 PM EDT Office Visit [facility] Cardiovascular Clinic 70 [place] [address] Nic Vega MD, MS 75 [facility] [address] [place] [address] [email or web address] documented as of this encounter Visit Diagnoses Not on filedocumented in this encounter Care Teams Poultry Eviscerator Relationship Specialty Start Date End Date Liz Fuentes MD [address] [place] [address] [email or web address] PCP - General 05/07/22 12/17/24 Rahel Denny PA [address] [place] [address] PCP - General Physician Independent Driver 12/18/24 Unknown, Unknown, [address] [place] [address] 05/07/22 documented as of this encounter Additional Source Comments The information contained in this document represents components of the legal health record. It is not the complete legal health record.[facility]
--- OUTSIDE RECORDS SUMMARY | 2025-03-19 14:13 | XMS_ITS | Encounter Summary ---
Author Organization [facility] Address [address] [place] [address] Phone Care Team Providers Care Stock Checkerer Name Role Phone Liz Fuentes MD Primary Care Provider [phone] Unknown, Unknown Unavailable Unavailable Rahel Denny Primary Care Provider [phone] Encounter Details Date Type Department Care Team (Late st Contact Info) Description 05/09/2022 Procedure Pass [facility] Cardiac Fingerprint Expert [address] [place] [address] Social History Tobacco Use Types Packs/Day Years [...] Description 04/03/2026 3:00 PM EDT Office Visit [facility] Cardiovascular Clinic [address] [place] [address] Nic Vega MD, MS 75 [facility] [address] [place] [address] [email or web address] documented as of this encounter Visit Diagnoses Not on filedocumented in this encounter Care Teams Stock Checkerer Relationship Specialty Start Date End Date Liz Fuentes MD [address] [place] [address] [email or web address] PCP - General 05/07/22 12/17/24 Rahel Denny PA [address] [place] [address] PCP - General Physician Steel Wheel Engraver 12/18/24 Unknown, Unknown, [address] [place] [address] 05/07/22 documented as of this encounter Additional Source Comments The information contained in this document represents components of the legal health record. It is not the complete legal health record.[facility]
--- OUTSIDE RECORDS SUMMARY | 2025-03-19 14:13 | XMS_ITS | Encounter Summary ---
Author Organization [facility] Address [address] [place] [address] [address] [place] [address] Phone Care Team Providers Care Form Grader Operator Name Role Phone Liz Fuentes MD Primary Care Provider [phone] Unknown, Unknown Unavailable Unavailable Rahel Denny Primary Care Provider [phone] Encounter Details Date Type Department Care Team (Late st Contact Info) Description 09/14/2023 Procedure Pass [facility] [address] [place] [address] Social History Tobacco Use Types Packs/Day Years [...] Description 04/03/2026 3:00 PM EDT Office Visit [facility] Cardiovascular Clinic 70 [place] [address] Nic Vega MD, MS 75 [address] [place] [address] [email or web address] documented as of this encounter Visit Diagnoses Not on filedocumented in this encounter Care Teams Form Grader Operator Relationship Specialty Start Date End Date Liz Fuentes MD [address] [place] [address] PCP - General 05/07/22 12/17/24 Rahel Denny PA [address] [place] [address] PCP - General Physician Splitting Machine Operator Helper 12/18/24 Unknown, Unknown, [address] [place] [address] 05/07/22 documented as of this encounter Additional Source Comments The information contained in this document represents components of the legal health record. It is not the complete legal health record.[facility]
--- OUTSIDE RECORDS SUMMARY | 2025-03-19 14:14 | XMS_ITS | Encounter Summary ---
Author Organization [facility] Address [address] [place] [address] 9[address] [place] [address] Phone Care Team Providers Care Knitted Garment Finisher Name Role Phone Liz Fuentes MD Primary Care Provider [phone] Unknown, Unknown Unavailable Unavailable Rahel Denny Primary Care Provider [phone]- [phone] Encounter Details Date Type Department Care Team (Late st Contact Info) Description 10/14/2022 Procedure Pass [facility] EKG [address] [place] [address] Social History Tobacco Use Types Packs/Day Years [...] Description 04/03/2026 3:00 PM EDT Office Visit [facility] Cardiovascular Clinic [address] [place] [address] Nic Vega MD, MS 75 [address] [place] [address] [email or web address] documented as of this encounter Visit Diagnoses Not on filedocumented in this encounter Care Teams Knitted Garment Finisher Relationship Specialty Start Date End Date Liz Fuentes [place] [facility] [address] PCP - General 05/07/22 12/17/24 Rahel Denny PA [address] [place] [address] PCP - General Physician Coil Inspector 12/18/24 Unknown, Unknown, [address] [place] [address] 05/07/22 documented as of this encounter Additional Source Comments The information contained in this document represents components of the legal health record. It is not the complete legal health record.[facility]
--- OUTSIDE RECORDS SUMMARY | 2025-03-19 14:14 | XMS_ITS | Encounter Summary ---
Author Organization [facility] Address [address] [place] [address] [address] [place] [address] Phone Care Team Providers Care Plaster Whittler Name Role Phone Liz Fuentes MD Primary Care Provider [phone] Unknown, Unknown Unavailable Unavailable Rahel Denny Primary Care Provider [phone]- [phone] Encounter Details Date Type Department Care Team (Late st Contact Info) Description 05/08/2022 Procedure Pass [facility] Echocardiography 70 [place] [address] Social History Tobacco Use Types Packs/Day Years [...] 05/08/2022 5:00 AM Ayan Stevenson RN * [place] Suicide Severity Rating Scale (Screener/Recent Self-Report) Question [...] Description 04/03/2026 3:00 PM EDT Office Visit [facility] Cardiovascular Clinic 70 [place] [address] Nic Vega MD, MS 75 [facility] [address] [place] [address] [email or web address] documented as of this encounter Visit Diagnoses Not on filedocumented in this encounter Care Teams Plaster Whittler Relationship Specialty Start Date End Date Liz Fuentes MD [facility] [place] [address] PCP - General 05/07/22 12/17/24 Rahel Denny PA [address] [place] [address] PCP - General Physician Band Singer 12/18/24 Unknown, Unknown, [address] [place] [address] 05/07/22 documented as of this encounter Additional Source Comments The information contained in this document represents components of the legal health record. It is not the complete legal health record.[facility]
== END 2025-03-19 13:23 | disposition home or self-care (01) ==
LOC: HO.HMCFM 12:57
PROVIDERS: PCP Physician Assistant; Visit Provider Physician Assistant
DX: F41.1 Generalized anxiety disorder (principal); F41.0 Panic disorder [episodic paroxysmal anxiety]; E66.811 Obesity, class 1; Z68.31 Body mass index [BMI] 31.0-31.9, adult

== ENCOUNTER 2025-03-20 13:39 | Outpatient (REF) | payer BC, SELFPAY ==
--- OUTSIDE RECORDS SUMMARY | 2024-06-05 16:14 | XMS_ITS | Encounter Summary ---
Author Organization [facility] Address [address] [place] [address] [address] [place] [address] Phone Care Team Providers Care Computer Numerical Control Programmer Name Role Phone Liz Fuentes MD Primary Care Provider [phone] Unknown, Unknown MD Unavailable Unavailable Encounter Details Date Type Department Care Team (Late st Contact Info) Description 06/05/2024 3:14 PM EST Hospital Encounter [facility] [address] [place] [phone] Laura Barr CNP [address] [place] [phone] [email or web address] Social History Tobacco Use Types Packs/Day Years Used Date Smoking Tobacco: Never Smokeless Tobacco: Never Alcohol Use Standard Drinks/Week Comments Never 0 (1 standard drink = 0.6 oz pur e alcohol) Education Answer Date Recorded Are you interested in more education? Not on tyshawn e 10/14/2022 Are you concerned about learning? Not on file 10/14/2022 No 10/14/2022 No 10/14/2022 Digital Access Answer Date Recorded No 11/08/2022 No 11/08/2022 Reliable internet access at home? Not on file 11/08/2022 Device with a working camera? Not on file Comments Unknown Sex and Gender Information Value Date Recorded Sex Assigned at Female 05/16/2022 4:26 PM EST Legal Sex Female 5:18 PM EDT Gender Identity Female 05/16/2022 4:32 PM EST Sexual Orientation Straight 05/16/2022 4: 26 PM EST documented as of this encounter Plan of Treatment Upcoming Encounters Date Type Department Care Team (Late st Contact Info) Description 04/03/2026 3:00 PM EDT Office Visit [facility] [address] [place] [address] Nic Vega MD, MS [address] [place] [address] [email or web address] documented as of this encounter Procedures Procedure Name Priority Date/Time Associated Diagnosis Comments XR CHEST PA AND LATERAL 2 VIEWS Urgent/patient waiting 06/05/2024 3:18 PM EST Acute cough documented in this encounter Results * XR CHEST PA AND LATERAL 2 VIEWS (06/05/2024 3:18 PM EST) Anatomical Region Laterality Modality Chest Computed Radiogr aphy 06/05/2024 3:23 PM EST Impressions 06/05/2024 3:24 PM EST No acute abnormality. Narrative 06/05/2024 3:24 PM EST XR CHEST PA AND LATERAL 2 VIEWS Referring clinician's provided indication for this examination in Epic: Cough; H/o PE r/t OCP's- off eliquis X 1 year- Covid 2.5 weeks ago- restart eliqius X 2 weeks COMPARISON: XR CHEST PORTABLE 2021- FINDINGS: Devices/Tubes/Lines: None. Lungs: No focal consolidation or pulmonary edema. Pleura: No pleural effusions or pneumothorax. Heart/Mediastinum: Normal cardiomediastinal silhouette. Bones/Soft Tissues: No significant abnormality. Procedure Note Tatyana Lares MD - 06/05/2024 XR CHEST PA AND LATERAL 2 VIEWS Referring clinician's provided indication for this examination in Epic:Cough; H/o PE r/t OCP's- off eliquis X 1 year- Covid 2.5 weeks ago-restart eliqius X 2 weeks COMPARISON: XR CHEST PORTABLE FINDINGS: Devices/Tubes/Lines: None. Lungs: No focal consolidation or pulmonary edema. Pleura: No pleural effusions or pneumothorax. Heart/Mediastinum: Normal cardiomediastinal silhouette. Bones/Soft Tissues: No significant abnormality. IMPRESSION: No acute abnormality. Laura Barr UNIFORMS SALES REPRESENTATIVE IMG XR CHEST Final Resul t documented in this encounter Visit Diagnoses Not on filedocumented in this encounter Care Teams Computer Numerical Control Programmer Relationship Specialty Start Date End Date Liz Fuentes MD [facility] [place] [address] [email or web address] PCP - General 05/07/22 12/17/24 Unknown, Unknown, [facility] [place] [address] 05/07/22 documented as of this encounter Additional Source Comments The information contained in this document represents components of the legal health record. It is not the complete legal health record.[facility]
--- OUTSIDE RECORDS SUMMARY | 2025-03-20 15:08 | XMS_ITS | Encounter Summary ---
Author Organization [facility] Address [address] [place] [address] [address] [place] [address] Phone Care Team Providers Care Health Information Manager Name Role Phone Liz Fuentes MD Primary Care Provider [phone] Unknown, Unknown Unavailable Unavailable Rahel Denny Primary Care Provider [phone] Encounter Details Date Type Department Care Team (Late st Contact Info) Description 09/14/2023 Procedure Pass [facility] 75 [place] [address] Social History Tobacco Use Types Packs/Day Years [...] Description 04/03/2026 3:00 PM EDT Office Visit [facility] Cardiovascular Clinic 70 [place] [address] Nic Vega MD, MS 75 [address] [place] [address] [email or web address] documented as of this encounter Visit Diagnoses Not on filedocumented in this encounter Care Teams Health Information Manager Relationship Specialty Start Date End Date Liz Fuentes MD [address] [place] [address] PCP - General 05/07/22 12/17/24 Rahel Denny PA [address] [place] [address] PCP - General Physician Fondant Cooker 12/18/24 Unknown, Unknown, [address] [place] [address] 05/07/22 documented as of this encounter Additional Source Comments The information contained in this document represents components of the legal health record. It is not the complete legal health record.[facility]
--- OUTSIDE RECORDS SUMMARY | 2025-03-20 15:08 | XMS_ITS | Encounter Summary ---
Author Organization [facility] Address [address] [place] [address] 985 [place] [address] Phone Care Team Providers Care Landscape Artist Name Role Phone Liz Fuentes MD Primary Care Provider [phone] Unknown, Unknown Unavailable Unavailable Rahel Denny Primary Care Provider [phone] Encounter Details Date Type Department Care Team (Late st Contact Info) Description 10/14/[address] [facility] EKG [address] [place] [address] Social History Tobacco Use Types Packs/Day Years [...] Description 04/03/2026 3:00 PM EDT Office Visit [facility] Cardiovascular Clinic [address] [place] [address] Nic Vega MD, MS 75 [address] [place] [address] [email or web address] documented as of this encounter Visit Diagnoses Not on filedocumented in this encounter Care Teams Landscape Artist Relationship Specialty Start Date End Date Liz Fuentes MD [facility] [place] [address] PCP - General 05/07/22 12/17/24 Rahel Denny PA [address] [place] [address] PCP - General Physician Contract Agent 12/18/24 Unknown, Unknown, [address] [place] [address] 05/07/22 documented as of this encounter Additional Source Comments The information contained in this document represents components of the legal health record. It is not the complete legal health record.[facility]
--- OUTSIDE RECORDS SUMMARY | 2025-03-20 15:08 | XMS_ITS | Encounter Summary ---
Author Organization [facility] Address [address] [place] [address] Phone Care Team Providers Care Rail Project Engineer Name Role Phone Liz Fuentes MD Primary Care Provider [phone] Unknown, Unknown Unavailable Unavailable Rahel Denny Primary Care Provider [phone] Encounter Details Date Type Department Care Team (Late st Contact Info) Description 05/30/2022 Procedure Pass [address] [address] Social History Tobacco Use Types Packs/Day Years [...] 04/03/2026 3:00 PM EDT Office Visit [facility] Cardiovascular Clinic [address] [place] [address] Nic Vega MD, MS 75 [facility] [address] [place] [address] [email or web address] documented as of this encounter Visit Diagnoses Not on filedocumented in this encounter Care Teams Rail Project Engineer Relationship Specialty Start Date End Date [place] [address] [email or web address] PCP - General 05/07/22 12/17/24 Rahel Denny PA [address] [place] [address] PCP - General Physician Mold Car Pusher 12/18/24 Unknown, Unknown, [address] [place] [address] 05/07/22 documented as of this encounter Additional Source Comments The information contained in this document represents components of the legal health record. It is not the complete legal health record.[facility]
--- OUTSIDE RECORDS SUMMARY | 2025-03-20 15:08 | XMS_ITS | Encounter Summary ---
Author Organization [facility] Address [address] [place], [place] [address] [place] [address] Phone Care Team Providers Care Baker Bread Name Role Phone Liz Fuentes MD Primary Care Provider [phone] Unknown, Unknown Unavailable Unavailable Rahel Denny Primary Care Provider [phone]- [phone] Encounter Details Date Type Department Care Team (Late st Contact Info) Description 05/17/2022 Procedure Pass [facility] Echocardiography 70 [place] [address] Social History Tobacco Use Types Packs/Day Years [...] Description 04/03/2026 3:00 PM EDT Office Visit [facility] Cardiovascular Clinic 70 [place] [address] Nic Vega MD, MS 75 [facility] [address] [place] [address] [email or web address] documented as of this encounter Visit Diagnoses Not on filedocumented in this encounter Care Teams Baker Bread Relationship Specialty Start Date End Date Liz Fuentes MD [address] [place] [address] [email or web address] PCP - General 05/07/22 12/17/24 Rahel Denny PA [address] [place] [address] PCP - General Physician Long Line Teamster 12/18/24 Unknown, Unknown, [address] [place] [address] 05/07/22 documented as of this encounter Additional Source Comments The information contained in this document represents components of the legal health record. It is not the complete legal health record.[facility]
--- OUTSIDE RECORDS SUMMARY | 2025-03-20 15:08 | XMS_ITS | Clinical Summary ---
Author Organization [facility] Address [address] [facility] 985 [place] [address] Phone Care Team Providers Care Fire Protection Specialist Name Role Phone Unknown, Unknown MD Unavailable Unavailable Rahel Denny Primary Care Provider [phone] Allergies Active Allergy Reactions Criticality Noted Date [...] Upcoming Encounters Date Type Department Care Team ([facility] st Contact Info) Description 04/03/2026 3:00 PM EDT Office Visit [facility] Cardiovascular Clinic 70 [place] [address] Nic Vega MD, MS 75 [facility] [address] [place] [address] [email or web address] Health Maintenance Due Date Last Done [...] EDT) CREATININE 0.78 0.50 - 1.20 mg/dL [facility] EGFR 105 >59 mL/min/1.7 3m2 [facility] Comment:Estimated glomerular filtration rate calculated using the CKD-EPI refit equation. 09/15/2023 8:06 AM EDT 09/15/2023 8:37 AM EDT us Nic Vega MD, MS LAB BLOOD ORDERABLES Final Result [facility] [address] [place] [address] from Last 3 Months or Most Recently Relevant to Health Maintenance Insurance [facility] [place] [place] [address] [place] [address] [place] [address] [place] [address] [place] [address] [place] [address] [place] [address] Advance Directives For more information, please contact: [phone] (9AM - 5PM Marg[place], Monday-Monday) Documents on File Type Date Recorded Patient Collar Pointer Expl anation Healthcare Proxy 05/17/2022 5:05 PM * Full Code (Latest Code Status on File) Date Activated Date Inactivated Comments 05/08/2022 6:20 AM Question Answer Comments Code Status Confirmed With: Patient Code Status Communicated To: Other (specify belo w) Code Discussion Comments: [facility] Care Teams Fire Protection Specialist Relationship Specialty Start Date End Date Rahel Denny PA [address] [place] [address] PCP - General Physician Ship Boat Or Barge Mate 12/18/24 Unknown, Unknown, 05/07/22 Additional Source Comments The information contained in this document represents components of the legal health record. It is not the complete legal health record.[facility]
--- OUTSIDE RECORDS SUMMARY | 2025-03-20 15:08 | XMS_ITS | Encounter Summary ---
Author Organization [facility] Address [address] [place] [address] Phone Care Team Providers Care Cattle Brander Name Role Phone Liz Fuentes MD Primary Care Provider [phone] Unknown, Unknown Unavailable Unavailable Rahel Denny Primary Care Provider [phone] Encounter Details Date Type Department Care Team (Late st Contact Info) Description 05/09/2022 Procedure Pass [facility] Cardiac Honeycomb Decapper [address] [place] [address] Social History Tobacco Use Types Packs/Day Years [...] Description 04/03/2026 3:00 PM EDT Office Visit [facility] [address] [place] [address] Nic Vega MD, [place] [address] [facility] [address] [place] [address] [email or web address] documented as of this encounter Visit Diagnoses Not on filedocumented in this encounter Care Teams Cattle Brander Relationship Specialty Start Date End Date Liz Fuentes MD [address] [place] [address] [email or web address] PCP - General 05/07/22 12/17/24 Rahel Denny PA [address] [place] [id number] PCP - General Physician Documentation Nurse 12/18/24 Unknown, Unknown, [address] [place] [id number] 05/07/22 documented as of this encounter Additional Source Comments The information contained in this document represents components of the legal health record. It is not the complete legal health record.[facility]
--- OUTSIDE RECORDS SUMMARY | 2025-03-20 15:08 | XMS_ITS | Encounter Summary ---
Author Organization [facility] Address [address] [place], [place] [address] [place] [address] Phone Care Team Providers Care Supervisor Testing Name Role Phone Liz Fuentes MD Primary Care Provider [phone] Unknown, Unknown Unavailable Unavailable Rahel Denny Primary Care Provider [phone] Encounter Details Date Type Department Care Team (Late st Contact Info) Description 05/11/2022 Procedure Pass [facility] [address] [place] [address] Social History Tobacco Use Types Packs/Day Years [...] Description 04/03/2026 3:00 PM EDT Office Visit [facility] [address] [place] [address] Nic Vega MD, MS [address] [facility] [address] [place] [address] [email or web address] documented as of this encounter Visit Diagnoses Not on filedocumented in this encounter Care Teams Supervisor Testing Relationship Specialty Start Date End Date Liz Fuentes MD [address] [place] [address] [email or web address] PCP - General 05/07/22 12/17/24 Rahel Denny PA [address] [place] [id number] PCP - General Physician Dispatcher [employer] 12/18/24 Unknown, Unknown, [address] [place] [address] 05/07/22 documented as of this encounter Additional Source Comments The information contained in this document represents components of the legal health record. It is not the complete legal health record.[facility]
--- OUTSIDE RECORDS SUMMARY | 2025-03-20 15:09 | XMS_ITS | Encounter Summary ---
Author Organization [facility] Address [address] [place] [address] [address] [place] [address] Phone Care Team Providers Care Director Of Student Affairs Name Role Phone Liz Fuentes MD Primary Care Provider [phone] Unknown, Unknown Unavailable Unavailable Rahel Denny Primary Care Provider [phone] Encounter Details Date Type Department Care Team (Late st Contact Info) Description 05/08/2022 Procedure Pass [facility] Echocardiography [address] [place] [address] Social History Tobacco Use Types Packs/Day Years [...] 05/08/2022 5:00 AM Ayan Stevenson RN * Mora Suicide Severity Rating Scale (Screener/Recent Self-Report) Question [...] Description 04/03/2026 3:00 PM EDT Office Visit [facility] [address] [place] [address] Nic Vega MD, MS [address] [facility] [address] [place] [address] [email or web address] documented as of this encounter Visit Diagnoses Not on filedocumented in this encounter Care Teams Director Of Student Affairs Relationship Specialty Start Date End Date Liz Fuentes MD [facility] [place] [address] PCP - General 05/07/22 12/17/24 Rahel Denny PA [address] [place] [id number] PCP - General Physician Clay Dry Press Operator 12/18/24 Unknown, Unknown, [address] [place] [phone] 05/07/22 documented as of this encounter Additional Source Comments The information contained in this document represents components of the legal health record. It is not the complete legal health record.[facility]
== END 2025-03-20 13:40 | disposition home or self-care (01) ==
LOC: HO.MAMMO 13:39
PROVIDERS: PCP Physician Assistant; Visit Provider Physician Assistant
DX: Z12.31 Encounter for screening mammogram for malignant neoplasm of breast (principal)
CPT/HCPCS: 77063; 77067

== ENCOUNTER → 2025-03-20 13:45 | Outpatient (BNV) | payer BC, SELFPAY | PROVIDERS: PCP Physician Assistant; Visit Provider Internal Medicine | DX: Z12.31 Encounter for screening mammogram for malignant neoplasm of breast (principal) | CPT/HCPCS: 77063; 77067 ==